=== PATIENT | female | born 1995 | race Caucasian/White ===

== ENCOUNTER 2018-10-22 09:08 | Emergency (ER) | payer BC, SELFPAY ==
[2018-10-22 09:09] VITALS: BP 136/84; PULSE 100; RESP 18; TEMP 36.6; O2SAT 100; BMI 24.7
--- NOTE | 2018-10-22 09:38 | CT_ITS ---
STUDY: CT ABDOMEN AND PELVIS WITH CONTRAST REASON FOR EXAM: Female, 23 years old. Right lower quadrant pain and nausea RADIATION DOSAGE (If Supplied By Facility): CTDIvol = ( 13.03 ) mGy, DLP = ( 688.98 ) mGycm TECHNIQUE: Transaxial images were obtained from the dome of the diaphragm to the symphysis pubis without oral contrast. 100mL ml of Isovue 300 contrast was administered. Sagittal and coronal images were reconstructed. Individualized dose optimization techniques were used for this CT. COMPARISON: None. FINDINGS: Visualized lung bases demonstrate no evidence for consolidative process. Mild hepatic steatosis. The pancreas are within normal limits. Adrenal glands appear unremarkable. The gallbladder is nondistended. Bowel gas pattern is nonobstructive. No definite evidence for acute appendicitis. Few scattered colonic diverticulosis seen without evidence for acute diverticulitis. Trace amount of free fluid. Low-attenuation structure noted in the deep pelvis measuring up to 3.9 cm possibly an adnexal cyst however this can be assessed with sonography. Kidneys demonstrate no evidence for hydronephrosis. No definite evidence for obstructing ureteral stones. Osseous structures demonstrate no acute abnormalities. IMPRESSION: No evidence for acute appendicitis. Low-attenuation cystic structure in the deep pelvis measuring up to 3.9 cm possibly an adnexal cyst however this can be assessed with sonography. No evidence for small bowel obstruction. Hepatic steatosis Electronically Signed: Suhas Landers, at 12:06 EST Tel , Service support , CT/Abdomen/Pelvis WITH Contrast
[2018-10-22 09:58] LABS: Absolute Lymphocyte Count 1.36 X10^3/ul (0.83-4.51); Absolute Neutrophil Count 4.5 X10^3/uL (2.0-7.7); Basophil# 0.01 X10^3/uL; Basophil% 0.2 % (0-1); Eosinophil# 0.06 X10^3/uL; Eosinophils% 0.9 % (0-5); Hematocrit 49.5 % (37-47); Hemoglobin 16.8 g/dl (12.0-15.0); Lymphocyte # 1.36 X10^3/ul (4.0); Lymphocyte % 21.4 % (19-41); Mean Corp Hgb Conc 33.9 g/gl (32-36); Mean Corpuscular Hgb 30.5 pg (27.0-32.0); Mean Platelet Vol. 9.5 fl (6.2-12.0); Monocyte# 0.41 X10^3/uL; Monocyte% 6.4 % (0-10); Neutrophil # 4.52 X10^3/uL (2.7-7.7); Neutrophil % 70.9 % (47-70); POSITIVE COUNT NO; POSITIVE DIFFERENTIAL NO; POSITIVE MORPHOLOGY NO; Platelet Count 211 K/mm3 (150-450); RBC Distribution Width CV 12.7 % (11.6-14.6); White Blood Count 6.4 K/mm3 (4.4-11.0)
[2018-10-22] MEDS: Ondansetron 4 MG/2 ML Vial IV (09:59)
[2018-10-22] MEDS: Morphine 4 MG/ML Syringe IV (09:59)
[2018-10-22] MEDS: 0.9% Normal Saline 1,000 ML 1000 ML IV (09:59)
[2018-10-22 10:15] LABS: ALB/GLOB Ratio 1.3 RATIO (0.9-2.4); AST(SGOT) 21 U/L (15-37); Alanine Aminotransfer ALT/SGPT 24 U/L (13-56); Albumin, Serum 4.9 g/dL (3.2-5.0); Alkaline Phosphatase 78 U/L (45-117); Anion Gap 11 (5-15); BUN 7 mg/dL (7-18); BUN/Creat Ratio 8.4 RATIO (10-20); Chloride 101 mmol/L (98-107); Creatinine, Serum 0.84 mg/dL (0.55-1.02); EST Glomerular Filtration Rate 88 mL/min (>60); Est Glom Filt Rate - Afr Amer 107 mL/min (>60); Estimated Creatinine Clearance 107.93 ml/min; Globulin 3.9 g/dL (2.2-4.2); Glucose 94 mg/dL (74-106); Lipase 123 U/L (73-393); Potassium 4.2 mmol/L (3.5-5.1); Protein, Total 8.8 g/dL (6.4-8.2); Sodium Level 139 mmol/L (136-145)
[2018-10-22 10:16] VITALS: BP 143/86; PULSE 79; RESP 16; O2SAT 100
[2018-10-22 10:27] LABS: Pregnancy, Serum, hCG Quali. NEGATIVE Negative (0-9 Nonpreg)
[2018-10-22 10:43] LABS: Mucous, Urine 0 SEEN /hpf (<or=2+); Red Blood Cells-Urine 0 SEEN /hpf (0-5); White Blood Cells 0 SEEN /hpf (0-5)
[2018-10-22 10:44] LABS: Color, Urine Yellow (Yellow); Glucose, Dipstick Normal (Normal); Ketone-Dipstick Negative (Negative); Leukocyte Esterase-Dipstick Negative /ul (Negative); Nitrite-Dipstick Negative (Negative); Occult Blood-Urine Negative /ul (Negative); Protein-Dipstick Negative (Negative); Specific Gravity, Urine 1.005 (1.002-1.030); Urine Bilirubin Dipstick Negative (Negative); Urine Clarity Clear (Clear); Urine Urobilinogen Normal (Normal)
[2018-10-22 10:53] LABS: Bacteria RARE /hpf (None Seen); Squamous Epithelial Cells - UA 0-5 SEEN /hpf (5-10)
--- NOTE | 2018-10-22 10:56 | ED.VISSUMM ---
- ER Visit Summary Date of Service: 10/22/18 Chief Complaint: Pain History of Present Illness: The patient is a 23 F with right lower quadrant pain that started yesterday around 7 PM. It does not radiate or move. Worse during the car ride here. Nothing seems to make it better. Associated with nausea. Denies vomiting, diarrhea, constipation, or fever. 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 No surgical history. Physical Examination: Afebrile and vital signs are unremarkable. Appears uncomfortable but not toxic or in acute distress. Heart regular. Lungs clear. Right lower quadrant tender to palpation. No guarding or rebound. Back is nontender. Skin appears normal. Test Results: Laboratory studies and urinalysis unremarkable except for hemoglobin of 16.8. test negative. Urinalysis negative. CT is pending. Emergency Department Course and Treatment: Patient was concerning for appendicitis. Labs are fairly unremarkable. Urinalysis and test negative. CT is pending. She was treated with fluids, morphine, and Zofran while awaiting results. CT showed no evidence of appendicitis or obstruction. She does have a 3.9 cm adnexal cyst on the right. Follow-up ultrasound was performed. This showed a right adnexal cyst measuring 4.4 x 3.2 x 3.3 cm. Patient will be referred to outpatient follow-up with [facility]. Dr. Reynoso is on-call for new patients. She will follow-up to document resolution and/or improvement. If she is worse, she should return to the ED right away. Risks were discussed. Treatment Plan: As above Disposition: Discharged Impression: 1. Right adnexal cyst This note was generated with [employer] dictation software. It may contain incorrect words, spelling, and punctuation that were not noted in review of the chart prior to signing ED Disposition - Plan for ED Patient: Chief Complaint: Abd Pain Referrals: Joel Wilkes DO [Primary Care Provider] -
--- NOTE | 2018-10-22 12:35 | US_ITS ---
STUDY: ULTRASOUND TRANSVAGINAL CLINICAL: Female, [address], pain. TECHNIQUE: Transvaginal COMPARISON: None. FINDINGS: Normal uterine size measuring 7.1 x 3.9 x 3.5 cm in maximal craniocaudal dimension. There are no myometrial masses. Normal endometrial thickness measuring 7 mm. There are no endometrial masses, and there is no fluid in the endometrial cavity. Normal uterine cervix. Normal right ovary, measuring 2.2 x 2.9 x 2.4 cm. There are multiple follicles without a dominant cyst. Within the right adnexa is a cystic mass measuring 4.4 x 3.2 x 3.3 cm with relatively simple appearance. Normal left ovary, measuring 2.6 x 2.5 x 2.4 cm. There are multiple follicles without a dominant cyst. Dominant follicle measures 1.3 x 1.3 x 1.2 cm. There is no free fluid in the pelvis. Polycystic ovary disease: No. US/Transvaginal Non- IMPRESSION: 1. Simple appearing dominant right adnexal paraovarian cyst measuring 4.4 x 3.2 x 3.3 cm. Recommend gynecologic consultation for further assessment and management. Electronically Signed: Adiel Olmstead DO at 13:38 EST , Service support ,
--- NOTE | 2018-10-22 13:57 | ED.DEP ---
ED Disposition - Plan for ED Patient: Chief Complaint: Abd Pain Instructions: ED Cyst Ovarian Referrals: Iván Reynoso MD [STAFF PHYSICIAN] -
[2018-10-22 14:26] VITALS: BP 124/77; PULSE 79; RESP 18; O2SAT 98
== END 2018-10-22 14:27 | disposition home or self-care (01) ==
LOC: ED 09:45
PROVIDERS: Emergency Provider Emergency Medicine; Family Provider Student in an Organized Health Care Education/Training Program; PCP Student in an Organized Health Care Education/Training Program
DX: L72.8 Other follicular cysts of the skin and subcutaneous tissue (principal); K76.0 Fatty (change of) liver, not elsewhere classified
CPT/HCPCS: 74177; 76830; 80053; 81001; 83690; 84703; 85025; 93976; 96361; 96374; 96375; 99283; J7030; Q9967; A4216; J2405

== ENCOUNTER 2019-05-02 10:07 | Emergency (ER) | payer BC, SELFPAY ==
[2019-05-02 10:08] VITALS: BP 144/92; PULSE 115; RESP 19; TEMP 37.1; O2SAT 99; BMI 23.6
[2019-05-02 10:32] LABS: Red Blood Cells-Urine 0 SEEN /hpf (0-5); White Blood Cells 0 SEEN /hpf (0-5)
[2019-05-02] MEDS: Ondansetron 4 MG/2 ML Vial IV (10:32)
--- NOTE | 2019-05-02 10:32 | ED.VIS.GEN ---
History of Present Illness Chief Complaint: Abd Pain Informant: Patient Onset: Today Context: Sudden Onset Timing: Continuous Quality: Pain Location: superior right inguinal crease Current Severity: Mild Maximum Severity: Moderate Worsened by: Nothing specifically Relieved by: nothing Associated Symptoms: Nausea only Narrative: Patient is a 24-year-old female who presents with right inguinal pain that started abruptly this morning. There is a history of ovarian cyst and specifically on the right side. She denies fever, chills night sweats. She denies vomiting, diarrhea or anorexia. She denies dysuria, frequency, urgency or hematuria. She denies history of renal ureterolithiasis. She denies vaginal discharge. She denies history of STI. She denies vaginal lesion or rash. She denies back or flank pain. Prior similar symptoms: Yes Recent Illness/Hospitalization: No - Past Medical History (1) History right ovarian cyst Status: Acute Past Medical History - Allergies and Home Meds Allergies/Adverse Reactions: Allergies No Known Allergies Allergy (Verified 05/02/19 10:07) Primary Care Physician: Care Physician,No Primary [Primary Care Provider] - Prior records reviewed: Yes - Visit with similar presentation September 2018 Past Medical History: None Surgical History: no surgical history Lives: Spouse/ Significant Other Smoking Status: Never smoker Alcohol: Rare Drugs: None Review of Systems General: Denies: Chills, Fever, Malaise, Subjective, Sweats Eyes: Reports: Diplopia. Denies: Visual changes - bilaterally, Blurred Vision - bilaterally ENT: Denies: Rhinorrhea, Sore throat Cardiovascular: Denies: Chest pain, Palpitations Respiratory: Denies: Dyspnea, Cough, Dyspnea on exertion Gastrointestinal: Reports: Abdominal pain, Nausea. Denies: Vomiting, Diarrhea, Constipation, Melena, Hematochezia, -, - Genitourinary: Denies: Dysuria, Hematuria, Frequency Musculoskeletal: Denies: Myalgias, Arthralgias, Neck pain, Back pain, Swelling, Extremity Pain, -, - Skin: Denies: Rash, Wounds Neurological: Denies: Headache, Weakness, Numbness Allergy: Denies: Uticaria, Swelling of the mouth Physical Exam Vital Signs/Narrative: Vital Signs Temp Pulse Resp BP Pulse Ox 05/02/19 10:08 98.7 F 115 H 19 H 144/92 H 99 Inital Vital Signs reviewed: Yes General: Well nourished, Well developed, No Acute Distress Head: Normocephalic, Atraumatic Eyes: Perrl, EOMI ENT: Moist mucous membranes, No rhinorrhea Neck: Supple, Nontender Cardiovascular: Regular rate, Regular rhythm, No murmurs Respiratory: No distress, CTA bilaterally, Chest nontender Abdomen: Soft, Nondistended, Normal bowel sounds, No masses, Tender - Superior to the right inguinal crease/group. There is no evidence of inguinal or femoral hernia. Patient began to cry during examination. There is no percussion tenderness and there is no referred pain.. Negative for: Nontender, Guarding, Rebound tenderness, Hyperactive bowel sounds, Hepatomegaly, Splenomegaly, Mass, Pulsatile mass Rectal: Deferred Back: Nontender, Normal Inspection Extremities: Nontender, No edema Skin: Normal color, No rash Neurological: Alert, Oriented x3, Cranial nerves II-XII grossly intact, Normal Strength, Normal Sensation Psychological: Normal affect, Normal Mood, Tearful Diagnostic/Tx/Re-eval Laboratory Results 05/02/19 05/02/19 10:15 10:28 Serum , Qual NEGATIVE Urine Color Yellow Urine Clarity Sl. Cloudy Urine pH 7.0 Ur Specific [place] 1.005 Urine Protein Negative Urine Glucose (UA) Normal Urine Ketones Negative Urine Occult Blood Negative Urine Nitrite Negative Urine Bilirubin Negative Urine Urobilinogen Normal Ur Leukocyte Esterase Negative Urine RBC 0 SEEN Urine WBC 0 SEEN Ur Squamous Epith Cells 0-5 SEEN Urine Bacteria 0 SEEN Urine Mucus [address] tests are negative. This rules out ectopic . Doubt ureteral stone. Patient is pain-free after IV Toradol. - Medical Decision Making Since she is sexually active and does not use any form of control will obtain test. UA was obtained to assess for atypical presentation of ureterolithiasis. There is no tenderness to McBurney's point and doubt appendicitis. No evidence of trauma and there are no skin lesions or rash to sick just shingles. She was medicated with IV Toradol and Zofran. Will reassess once laboratory results are available for review. With prior history of right ovarian cyst and location of pain with negative work-up will discharge with appropriate home-going instructions for ovarian cyst. ED Disposition - Plan for ED Patient: Disposition: Home or Assisted Living Diagnosis: Right ovarian cyst Instructions: ED Cyst Ovarian Referrals: Care Physician,No Primary [Primary Care Provider] - Mariel Naranjo MD [STAFF PHYSICIAN] - 3-5 Days if not improving Additional Instructions: Take 4 ibuprofen tablets every 8 hours for the next 2 days. If you develop a fever, vomiting, recurrent of severe pain please return to the emergency department.
[2019-05-02] MEDS: Ketorolac 15 MG/ML Vial IV (10:33)
[2019-05-02 10:34] LABS: Bacteria 0 SEEN /hpf (None Seen); Color, Urine Yellow (Yellow); Glucose, Dipstick Normal (Normal); Ketone-Dipstick Negative (Negative); Leukocyte Esterase-Dipstick Negative /ul (Negative); Mucous, Urine 0 SEEN /hpf (<or=2+); Nitrite-Dipstick Negative (Negative); Occult Blood-Urine Negative /ul (Negative); Protein-Dipstick Negative (Negative); Specific Gravity, Urine 1.005 (1.002-1.030); Urine Bilirubin Dipstick Negative (Negative); Urine Clarity Sl. Cloudy (Clear); Urine Urobilinogen Normal (Normal)
[2019-05-02 10:40] LABS: Squamous Epithelial Cells - UA 0-5 SEEN /hpf (5-10)
[2019-05-02 11:05] LABS: Internal QC Validated? YES +Cl - CLEAR BKGD; Pregnancy, Serum, hCG Quali. NEGATIVE Negative
[2019-05-02 11:21] VITALS: BP 119/78; PULSE 85; RESP 18; O2SAT 99
== END 2019-05-02 11:23 | disposition home or self-care (01) ==
PROVIDERS: Emergency Provider Emergency Medicine
DX: N83.201 Unspecified ovarian cyst, right side (principal); H53.2 Diplopia
CPT/HCPCS: 81001; 84703; 96374; 96375; 99283; A4216; J2405